=== PATIENT | female | born 1950 | race Caucasian/White ===

== ENCOUNTER → 2021-07-19 | Outpatient (CLI) | payer MEDICARE, OTHER ==
[~2021-07-19] MED LIST: ASPIRIN EC81 MG PO; ELIQUIS5 MG PO; FISH OIL 1,0001 EAC3 PO; HYDROCHLOROTH12.5 M1 PO; ICAPS MV TABLE1 EACH PO; LOSARTAN POTAS100 MG PO; MAXZIDE 37.5/21 EACH PO; METOPROLOL SUCC50 MG PO; MONTELUKAST SOD10 MG PO; MULTIPLE VITAM1 EACH PO; PRESERVISION A1 EAC2 PO; VITAMIN D325 MC6 PO; XARELTO20 MG PO; ZYRTEC10 M3 PO
== END ==
LOC: KOH-I 08:59
DX: M17.12 Unilateral primary osteoarthritis, left knee (principal)
CPT/HCPCS: 73562